=== PATIENT | male | born 1935 | race Caucasian/White ===

== ENCOUNTER 2018-02-16 09:11 | Emergency (ER) | payer MEDICARE, OTHER ==
[~2018-02-16] VITALS: Ht 172.7 cm; Wt 88.5 kg
--- NOTE | 2018-02-16 09:30 | NUR ---
mse completed, pt d/c'd home, aci/rx x1 given. pt ambulated w/o diff/took all belongings.
[2018-02-16 09:31] VITALS: BP 144/70
== END 2018-02-16 09:31 | disposition home or self-care (01) ==
LOC: ER 09:11
DX: K11.5 Sialolithiasis (principal); I10 Essential (primary) hypertension; E78.00 Pure hypercholesterolemia, unspecified; Z88.1 Allergy status to other antibiotic agents
CPT/HCPCS: A4663

== ENCOUNTER 2020-11-07 19:24 | Inpatient (IN) | payer MEDICARE, OTHER ==
[~2020-11-07] VITALS: Ht 175.3 cm; Wt 80.7 kg
--- NOTE | 2020-11-07 19:35 | NUR ---
BIB [facility] from home with generalized weakness, SOB, n/v x 2 days. To room 1B; seen and evaluated by Dr. Hidalgo. Vomited small amounts og greenish fluids. O2 sat on room air 89%. O2 3L NC administered.
[2020-11-07] MEDS ORDERED: ONDANSETRON 4 MG/2 ML VIAL IV ONE ×2 (19:45)
[2020-11-07] MEDS ORDERED: IV NORMAL SALINE 1000 ML BAG IV ONE (19:45)
[2020-11-07] MEDS ORDERED: ACETAMINOPHEN 325 MG TABLET PO ONE (19:45)
[2020-11-07 19:55] LABS: BASOPHILS # (AUTO) 0.1 K/uL (0.0-8.0); BASOPHILS % (AUTO) 0.4 % (0.0-2.0); EOSINOPHILS % (AUTO) 0.1 % (0.0-7.0); HEMATOCRIT 35.6 % (36.7-47.1); HEMOGLOBIN 11.6 g/dL (12.5-16.3); LYMPHOCYTES # (AUTO) 1.8 K/uL (20.0-40.0); LYMPHOCYTES % (AUTO) 11.1 % (20.5-51.5); MEAN CORPUSCULAR HEMOGLOBIN 28.2 uug (23.8-33.4); MEAN CORPUSCULAR HGB CONC 33 g/dL (32.5-36.3); MONOCYTES # (AUTO) 0.7 K/uL (2.0-10.0); MONOCYTES % (AUTO) 4.4 % (0.0-11.0); NEUTROPHILS # (AUTO) 13.6 K/uL (1.8-8.9); PLATELET COUNT (AUTO) 318 K/uL (152-348); RED BLOOD CELL COUNT(AUTO) 4.14 MIL/uL (4.06-5.63); WHITE BLOOD COUNT (AUTO) 16.2 K/uL (3.6-10.2)
[2020-11-07 20:00] LABS: CREATININE 0.9 mg/dL (0.6-1.3); POTASSIUM 4.1 mmol/L (3.5-5.1)
[2020-11-07 20:06] LABS: BILIRUBIN,DIRECT 0.2 mg/dL (0.0-0.2); BILIRUBIN,TOTAL 0.6 mg/dL (0.2-1.0); TOTAL PROTEIN, SERUM 6.9 g/dL (6.4-8.2)
[2020-11-07] MEDS ORDERED: ONDANSETRON 4 MG/2 ML VIAL ONE (20:06)
[2020-11-07] MEDS ORDERED: ACETAMINOPHEN ES 500 MG TABLET ONE (20:06)
--- NOTE | 2020-11-07 20:08 | NUR ---
Medicated with Tylenol after dose of Zofran. Patient denies nausea. No further vomiting. Covid 19 antigen swab sent to lab.
--- NOTE | 2020-11-07 20:15 | NUR ---
Nara patient's [id number] called . Stated that patient lives with her; updated of patient's condition. Awaiting for lab results.
[2020-11-07] MEDS ORDERED: AZITHROMYCIN 500 MG VIAL IV ONE (20:44)
[2020-11-07] MEDS ORDERED: CEFTRIAXONE 1 G VIAL ONE (20:44)
--- NOTE | 2020-11-07 20:44 | NUR ---
SHAUNNA FROM LAB CALLED TO INFORM RAPID COVID RESULT IS NEGATIVE
[2020-11-07] MEDS ORDERED: AZITHROMYCIN IV 500 MG in IV DEXTROSE 5% 250 ML IV ONE (20:45)
[2020-11-07] MEDS ORDERED: CEFTRIAXONE 1 G in IV DEXTROSE 5% 50 ML IV ONE (20:45)
[2020-11-07] MEDS ORDERED: CARV12.52 PO (20:49)
[2020-11-07] MEDS ORDERED: SIMV-46 PO ×2 (20:49)
[2020-11-07] MEDS ORDERED: METF-866 PO (20:49)
[2020-11-07] MEDS ORDERED: LISI10TA29 PO (20:49)
[2020-11-07] MEDS ORDERED: TRAZ-182 PO (20:49)
[2020-11-07] MEDS ORDERED: ASPI81TA31 PO (20:49)
[2020-11-07] MEDS ORDERED: TAMS-3 PO (20:49)
[2020-11-07] MEDS ORDERED: MAGN400C PO (20:49)
--- NOTE | 2020-11-07 21:00 | NUR ---
Patient to be admitted as per Dr. Hidalgo. Spoke to Stephen SALES AND BUSINESS DEVELOPMENT MANAGER. Patient AAO. NAD noted. Voided per urinal; urine specimen sent to lab.
[2020-11-07 21:18] LABS: *BLOOD, URINE TRACE (NEGATIVE); *CLARITY,URINE CLEAR (CLEAR); *COLOR,URINE YELLOW (YELLOW); LEUKOCYTE ESTERASE ,URINE TRACE (NEGATIVE)
[2020-11-07 21:19] LABS: *BILIRUBIN,URIN NEGATIVE (NEGATIVE); *KETONES,URINE 1+ (NEGATIVE); *UROBILINOGEN,URINE 0.2 E.U./dl (NORMAL); NITRITE, URINE NEGATIVE (NEGATIVE); PH,URINE 5.5 (5.0-8.0); UGLUCOSE NEGATIVE (NEGATIVE)
--- NOTE | 2020-11-07 21:36 | NUR ---
Report given to Chencho AVILA.
--- NOTE | 2020-11-07 21:39 | NUR ---
Patient's [id number] Nara called and informed of plan of care.
--- NOTE | 2020-11-07 21:42 | NUR ---
Pt. admitted to 309 , under care of Stephen Lim CHANNEL LIP STIFFENER INSOLES Belongs List completed
--- NOTE | 2020-11-07 21:50 | NUR ---
Admitted patient on tele floor under the care of Lebron CRAPS DEALER. Patient alert oriented, no sob no chest pain, on oxygen 3LPM. Patient has no cough, lung clear, afebrile at this time. Patient was kept comfortable, call light within reach.
[2020-11-07] MEDS ORDERED: HYDROCODONE/APAP 5-325MG TABLET PO PRN (22:15)
[2020-11-07] MEDS ORDERED: ALBUTEROL SULFATE 1.25 MG/3 ML NEBU NEB PRN (22:15)
[2020-11-07] MEDS ORDERED: Z GUARD REMEDY PASTE 57 GM TUBE TOP PRN (22:15)
[2020-11-07] MEDS ORDERED: ACETAMINOPHEN 325 MG TABLET PO PRN (22:15)
[2020-11-07] MEDS ORDERED: MAGNESIUM HYDROXIDE 30 ML LIQUID UDC PO PRN (22:15)
[2020-11-07] MEDS ORDERED: IPRATROPIUM BROMIDE 0.5 MG/2.5 ML NEBU NEB PRN (22:15)
[2020-11-07] MEDS ORDERED: IV 1/2NS 1000 ML 1,000 ML IV ONE (22:15)
[2020-11-07] MEDS ORDERED: INSULIN REGULAR, HUMAN 300 UNIT/3 ML VIAL SQ PRN (22:15)
[2020-11-07] MEDS ORDERED: ONDANSETRON 4 MG/2 ML VIAL IV PRN (22:15)
[2020-11-07] MEDS ORDERED: MORPHINE SULFATE 2 MG/1 ML DISP.SYRIN IV PRN (22:15)
[2020-11-07] MEDS ORDERED: ZOLPIDEM 5 MG TABLET PO PRN (22:15)
[2020-11-07] MEDS ORDERED: DEXTROSE 50% 50 ML DISP.SYRIN IV PRN (22:15)
[2020-11-07 22:50] VITALS: BP 108/47
[2020-11-08] MEDS: ENOXAPARIN SODIUM 40 MG/0.4 ML DISP.SYRIN SQ SCH ×2 (00:18→20:11)
[2020-11-08 00:40] VITALS: BP 91/36
[2020-11-08 04:00] VITALS: BP 108/39
[2020-11-08] MEDS: BLOOD SUGAR DIAGNOSTIC 1 EACH STRIP VI SCH ×3 (05:39→17:02)
[2020-11-08 06:24] LABS: BASOPHILS # (AUTO) 0.1 K/uL (0.0-8.0); BASOPHILS % (AUTO) 0.4 % (0.0-2.0); HEMATOCRIT 33.3 % (36.7-47.1); HEMOGLOBIN 10.6 g/dL (12.5-16.3); LYMPHOCYTES # (AUTO) 2.4 K/uL (20.0-40.0); LYMPHOCYTES % (AUTO) 16.5 % (20.5-51.5); MEAN CORPUSCULAR HEMOGLOBIN 27.8 uug (23.8-33.4); MEAN CORPUSCULAR HGB CONC 32 g/dL (32.5-36.3); MEAN CORPUSCULAR VOLUME 87.4 fL (73.0-96.2); MONOCYTES # (AUTO) 0.7 K/uL (2.0-10.0); MONOCYTES % (AUTO) 4.6 % (0.0-11.0); NEUTROPHILS # (AUTO) 11.3 K/uL (1.8-8.9); NEUTROPHILS % (AUTO) 78.5 % (38.5-71.5); PLATELET COUNT (AUTO) 271 K/uL (152-348); RED BLOOD CELL COUNT(AUTO) 3.81 MIL/uL (4.06-5.63); WHITE BLOOD COUNT (AUTO) 14.4 K/uL (3.6-10.2)
[2020-11-08 06:57] LABS: BILIRUBIN,TOTAL 0.3 mg/dL (0.2-1.0); MAGNESIUM 1.6 mg/dL (1.8-2.4); PHOSPHOROUS 4.2 mg/dL (2.5-4.9)
[2020-11-08 07:10] LABS: THYROID STIMULATING HORMONE 0.446 mIU/mL (0.358-3.740)
[2020-11-08] MEDS ORDERED: CARVEDILOL 12.5 MG TABLET PO SCH (08:00)
[2020-11-08] MEDS ORDERED: METFORMIN HCL 500 MG TABLET PO SCH (08:00)
[2020-11-08 08:10] VITALS: BP 112/38
[2020-11-08] MEDS: LISINOPRIL 10 MG TABLET PO SCH (08:31)
[2020-11-08] MEDS: ASPIRIN 81 MG TAB.CHEW PO SCH (08:32)
[2020-11-08] MEDS ORDERED: TAMSULOSIN HCL 0.4 MG CAP.SR.24H PO SCH (09:00)
[2020-11-08 11:41] VITALS: BP 112/45
[2020-11-08] MEDS ORDERED: MAGNESIUM OXIDE 400 MG TABLET PO ONE (11:45)
[2020-11-08] MEDS ORDERED: FINA5TAB11 PO (12:50)
[2020-11-08] MEDS ORDERED: ERGO500040 PO (12:50)
[2020-11-08] MEDS ORDERED: BUDE10.2 INH (12:50)
[2020-11-08] MEDS ORDERED: MELO-107 PO (12:50)
[2020-11-08] MEDS ORDERED: METF-440 PO (12:50)
[2020-11-08] MEDS ORDERED: PANT40TA49 PO (12:50)
[2020-11-08] MEDS ORDERED: DOCU250C14 PO (12:50)
[2020-11-08] MEDS ORDERED: IPRA42SP NS (12:50)
[2020-11-08 15:33] VITALS: BP 102/45
[2020-11-08] MEDS ORDERED: SWABABLE VALVE TRANSFER SET EA MC ONE (17:00)
[2020-11-08] MEDS ORDERED: IV NORMAL SALINE 250 ML IV ONE (17:01)
[2020-11-08] MEDS ORDERED: IOHEXOL 300MG/ML 100 ML INFUS..BTL ONE (17:01)
[2020-11-08] MEDS: CARVEDILOL 3.125 MG TABLET PO SCH (18:31)
--- NOTE | 2020-11-08 19:15 | NUR ---
Patient report received from day shift. Pateint alert and oriented x 4. Skin in tact. No reports of shortness of breath. Currently on 3L of oxygen via NC. Patient is on Tele, sinus rhythm. No chest pain reported. Continent, uses bedside commode. IV line on the R wrist 18g. No reports of pain. Bed in low and locked position. Safety and fall precautions in place. Call light with in reach.
[2020-11-08] MEDS: TAMSULOSIN HCL 0.4 MG CAP.SR.24H PO SCH (20:05)
[2020-11-08] MEDS: TRAZODONE 50 MG TABLET PO SCH (20:05)
[2020-11-08] MEDS: CEFTRIAXONE 1 G in IV DEXTROSE 5% 50 ML IV SCH (20:06)
[2020-11-08 20:15] VITALS: BP 140/43
[2020-11-08] MEDS ORDERED: SIMVASTATIN 20 MG TABLET PO SCH (21:00)
[2020-11-08] MEDS: AZITHROMYCIN IV 500 MG in IV DEXTROSE 5% 250 ML IV SCH (21:19)
[2020-11-09 00:34] VITALS: BP 106/48
[2020-11-09 04:43] VITALS: BP 124/56
[2020-11-09 05:32] LABS: BASOPHILS # (AUTO) 0.1 K/uL (0.0-8.0); BASOPHILS % (AUTO) 0.7 % (0.0-2.0); EOSINOPHILS # (AUTO) 0.2 K/uL (0.0-0.7); EOSINOPHILS % (AUTO) 2.2 % (0.0-7.0); HEMATOCRIT 34.6 % (36.7-47.1); HEMOGLOBIN 10.8 g/dL (12.5-16.3); LYMPHOCYTES # (AUTO) 2.6 K/uL (20.0-40.0); LYMPHOCYTES % (AUTO) 32.8 % (20.5-51.5); MEAN CORPUSCULAR HEMOGLOBIN 27.1 uug (23.8-33.4); MEAN CORPUSCULAR HGB CONC 31 g/dL (32.5-36.3); MEAN CORPUSCULAR VOLUME 87.1 fL (73.0-96.2); MONOCYTES # (AUTO) 0.9 K/uL (2.0-10.0); MONOCYTES % (AUTO) 12.1 % (0.0-11.0); NEUTROPHILS # (AUTO) 4.1 K/uL (1.8-8.9); NEUTROPHILS % (AUTO) 52.2 % (38.5-71.5); PLATELET COUNT (AUTO) 265 K/uL (152-348); RED BLOOD CELL COUNT(AUTO) 3.98 MIL/uL (4.06-5.63); WHITE BLOOD COUNT (AUTO) 7.8 K/uL (3.6-10.2)
[2020-11-09 05:43] LABS: BILIRUBIN,TOTAL 0.2 mg/dL (0.2-1.0); CREATININE 0.8 mg/dL (0.6-1.3); MAGNESIUM 1.4 mg/dL (1.8-2.4); PHOSPHOROUS 3.2 mg/dL (2.5-4.9); POTASSIUM 4.1 mmol/L (3.5-5.1)
--- NOTE | 2020-11-09 06:52 | NUR ---
Patient slept well through the night. Awake and alert and oriented x 4. Patient is still on 3L of oxygen saturating at 97%. No reports of shortness of breath. On TELE, lexis throughout the night, currently sinus rhythm with some PVCs. Able to use urinal and commode with assistance. Continent for bowel and urine. Medications given as ordered. Safety and fall precautions in place.
[2020-11-09] MEDS: CARVEDILOL 3.125 MG TABLET PO SCH ×2 (08:04→17:08)
[2020-11-09] MEDS: ASPIRIN 81 MG TAB.CHEW PO SCH (08:04)
[2020-11-09] MEDS: LISINOPRIL 10 MG TABLET PO SCH (08:05)
--- NOTE | 2020-11-09 08:30 | NUR ---
RECEIVED PATIENT IN BED AWAKE ALERT AND ORIENTED AND VERBALLY RESPONSIVE DENIES PAIN OR DISCOMFORTS AT THIS TIME.TELE IS SR AT THIS TIME.CALL LIGHTS AND HIS PERSONAL BELONGINGS ARE WITHIN EASY REACH MADE COMFORTABLE.
[2020-11-09 08:34] VITALS: BP 109/55
--- NOTE | 2020-11-09 10:00 | NUR ---
IV SITE CHANGED TO LEFT FOREARM WITH GAUGE 20 WITH ONE ATTEMPT AND TOLERATED WELL.
[2020-11-09] MEDS ORDERED: Medication Not On Formulary EA (Meloxicam 15 MG) PO SCH (10:45)
--- NOTE | 2020-11-09 11:00 | NUR ---
PHYSICAL THERAPY SEEN PATIENT AND PATIENT AMBULATED WITH FRONT WHEEL WALKER WITH MIN ASSIST WITH FAIR ENDURANCE.
[2020-11-09] MEDS: MELOXICAM 7.5 MG TABLET PO SCH (11:02)
[2020-11-09] MEDS: MAGNESIUM SULFATE/D5W 100 ML IV SCH ×2 (11:02→12:03)
--- NOTE | 2020-11-09 12:03 | NUR ---
MAG LEVEL IS 1.4 WITH NEW ORDERS FOR MAGNESSIUM REPLACEMENT AND NOTED.
[2020-11-09 16:06] VITALS: BP 139/52
[2020-11-09 20:15] VITALS: BP 119/50
[2020-11-09] MEDS: CEFTRIAXONE 1 G in IV DEXTROSE 5% 50 ML IV SCH (20:24)
[2020-11-09] MEDS: TRAZODONE 50 MG TABLET PO SCH (20:24)
[2020-11-09] MEDS: TAMSULOSIN HCL 0.4 MG CAP.SR.24H PO SCH (20:24)
[2020-11-09] MEDS: ENOXAPARIN SODIUM 40 MG/0.4 ML DISP.SYRIN SQ SCH (20:25)
[2020-11-09] MEDS: AZITHROMYCIN IV 500 MG in IV DEXTROSE 5% 250 ML IV SCH (21:12)
[2020-11-10 00:24] VITALS: BP 113/48
[2020-11-10 04:41] VITALS: BP 112/55
--- NOTE | 2020-11-10 05:27 | NUR ---
Pt slept intermittently throughout the night. Denies pain or SOB. Titrated to 2L NC. Given Milk of Magnesia for c/o gas and constipation, patient tolerated medication well. Able to get up with assist to use bedside commode. Currently SR on tele. Had episodes of PVCs with no chest pain or discomfort noted. Safety and comfort provided throughout shift, call light within reach. No other issues or concerns at this time, will endorse to day shift.
[2020-11-10 06:36] LABS: BASOPHILS # (AUTO) 0.1 K/uL (0.0-8.0); BASOPHILS % (AUTO) 0.6 % (0.0-2.0); EOSINOPHILS # (AUTO) 0.1 K/uL (0.0-0.7); EOSINOPHILS % (AUTO) 1.6 % (0.0-7.0); HEMATOCRIT 35.8 % (36.7-47.1); HEMOGLOBIN 11.4 g/dL (12.5-16.3); LYMPHOCYTES # (AUTO) 2.8 K/uL (20.0-40.0); MEAN CORPUSCULAR HEMOGLOBIN 27.7 uug (23.8-33.4); MEAN CORPUSCULAR HGB CONC 32 g/dL (32.5-36.3); MEAN CORPUSCULAR VOLUME 87.2 fL (73.0-96.2); MONOCYTES % (AUTO) 10.9 % (0.0-11.0); NEUTROPHILS # (AUTO) 5.1 K/uL (1.8-8.9); NEUTROPHILS % (AUTO) 55.9 % (38.5-71.5); PLATELET COUNT (AUTO) 302 K/uL (152-348); WHITE BLOOD COUNT (AUTO) 9.1 K/uL (3.6-10.2)
[2020-11-10 06:56] LABS: CREATININE 0.8 mg/dL (0.6-1.3); MAGNESIUM 1.8 mg/dL (1.8-2.4); PHOSPHOROUS 3.1 mg/dL (2.5-4.9); POTASSIUM 4.1 mmol/L (3.5-5.1)
[2020-11-10] MEDS ORDERED: PANTOPRAZOLE SODIUM 40 MG TABLET.DR PO SCH (07:00)
--- NOTE | 2020-11-10 07:30 | NUR ---
IN BED ASLEEP WITH EYES CLOSED WITH O2 ORDERED WITH NO S/S OFSHORTNESS OF BREATH AT THIS TIME.TELE IS SR ALERT AND ORIENTED WHEN CALLED OR TOUCHED DENIES PAIN OR DISCOMFORTS AT THIS TIME CALL LIGHTS AND PERSONAL BELONGINGS ARE WITHIN EASY REACH NOT IN DISTRESS WILL CONTINUE TO OBSERVE.
--- NOTE | 2020-11-10 08:56 | NUR ---
PATIENT SEEN BY THE PHYSICAL THERAPY FOR AMBULATION WALKED 50 FEET WITH MIN ASSIST AND THE O2 ON ROOM AIR AT THIS TIME IS 95 PATIENT IS SITTING ON THE CHAIR IN HIS ROOM ON ROOM AIR EATING HIS BREAKFAST WILL CHECK HIS O2 SAT LATER.
[2020-11-10] MEDS: ASPIRIN 81 MG TAB.CHEW PO SCH (08:58)
[2020-11-10] MEDS: MELOXICAM 7.5 MG TABLET PO SCH (08:58)
[2020-11-10] MEDS: LISINOPRIL 10 MG TABLET PO SCH (08:59)
[2020-11-10] MEDS: CARVEDILOL 3.125 MG TABLET PO SCH (08:59)
[2020-11-10] MEDS ORDERED: FINASTERIDE 5 MG TABLET PO SCH (09:00)
[2020-11-10 11:16] VITALS: BP 113/52
[2020-11-10] MEDS ORDERED: TAMS-3 PO (12:14)
[2020-11-10] MEDS ORDERED: CARV3.122 PO (12:14)
[2020-11-10] MEDS ORDERED: CEPH500C2 PO (12:14)
--- NOTE | 2020-11-10 12:30 | NUR ---
DR NAZARIO HERE TO SEE PATIENT WITH ORDER TO DISCHARGE PATIENT HOME TODAY AND NOTED PATIENT AWARE AND STATED THAT HIS DAUGHTER MCIHAEL WILL BE HERE TO PICK HIM UP ABOUT 1330.
--- NOTE | 2020-11-10 13:00 | NUR ---
NOTED THAT PATIENTS NEW DISCHARGE MEDICATIONS WAS SENT ELECTRONICALLY TO [facility] BY DR JONES BUT PATIENT STATED THAT HIS PHARMACY IS [facility] BUT IS AGREEABLE TO PICK HIS MEDICATIONS FROM [facility] SO INFO ON [facility] PROVIDED TO THE PATIENT PREPPING PATIENT FOR DISCHARGE AT THIS TIME.
--- NOTE | 2020-11-10 13:35 | NUR ---
PATIENT DISCHARGED WHEELED DOWN BY W/CHAIR WITH DISCHARGE INSTRUCTIONS AND ALL HIS PERSONAL BELONGINGS PER THE CASE MANAGEMENT NOTES PATIENT HAS AN OPEN CASE WITH THE [facility] AND THEY WILL CONTINUE WITH THEM PATIENT DISCHARGED IN SATISFACTORY CONDITION WILL START KEFLEX SOON HE GETS THEM FROM THE PHARMACY.
[2020-11-10] MEDS ORDERED: METFORMIN HCL 500 MG TABLET PO SCH (18:00)
[2020-11-10] MEDS ORDERED: AZITHROMYCIN 250 MG TABLET PO SCH (21:00)
== END 2020-11-10 13:45 | disposition home health service (06) | DRG 871 ==
LOC: ER 19:24 → TELE3 21:38
PROVIDERS: ADMIT Internal Medicine; ATTEND Internal Medicine
DX: A41.9 Sepsis, unspecified organism (principal); J96.01 Acute respiratory failure with hypoxia; J12.9 Viral pneumonia, unspecified; E44.0 Moderate protein-calorie malnutrition; D68.59 Other primary thrombophilia; M48.56XA Collapsed vertebra, not elsewhere classified, lumbar region, initial encounter for fracture; J90 Pleural effusion, not elsewhere classified; Z20.822 Contact with and (suspected) exposure to COVID-19; E11.9 Type 2 diabetes mellitus without complications; E83.42 Hypomagnesemia; I10 Essential (primary) hypertension; N28.1 Cyst of kidney, acquired; Z87.440 Personal history of urinary (tract) infections; R94.31 Abnormal electrocardiogram [ECG] [EKG]; E88.09 Other disorders of plasma-protein metabolism, not elsewhere classified; M48.16 Ankylosing hyperostosis [Forestier], lumbar region; N40.0 Benign prostatic hyperplasia without lower urinary tract symptoms; K59.09 Other constipation; Z79.84 Long term (current) use of oral hypoglycemic drugs
CPT/HCPCS: 36415; 70030-TC; 71045; 71260; 83605; 83690; 83735; 84100; 84443; 85025; 85730; 93005; A4663; A9150; G0378; J0456; J0696; J1650; J1815; J2405; J3475; J3490; J7030; J7040; J7050; J7060; Q9967; U0003

== ENCOUNTER 2020-11-12 11:44 | Emergency (ER) | payer MEDICARE, OTHER ==
[~2020-11-12] VITALS: Ht 160 cm; Wt 74.8 kg
[~2020-11-12 11:44] MED LIST: ASPI81TA31 PO; BUDE10.2 INH; CARV3.122 PO; CEPH500C2 PO; DOCU250C14 PO; ERGO500040 PO; FINA5TAB11 PO; IPRA42SP NS; LISI10TA29 PO; MELO-107 PO; METF-440 PO; PANT40TA49 PO; TAMS-3 PO; TRAZ-182 PO
--- NOTE | 2020-11-12 11:47 | NUR ---
patient states he was admitted a few days ago for the same complaint. patient is unable to urinate. Dr. Eid at bedside will place nova.
[2020-11-12] MEDS ORDERED: LIDOCAINE 2% (UROJET) 10 ML JELLY MM ONE ×2 (11:56→12:00)
[2020-11-12] MEDS ORDERED: POLY17PO4 PO (12:20)
[2020-11-12] MEDS ORDERED: SENN-261 PO (12:20)
--- NOTE | 2020-11-12 12:21 | NUR ---
sent urine to lab. also informed Dr. Eid that patient states he is unable to have bowel movement for last 4 days.
--- NOTE | 2020-11-12 12:28 | NUR ---
patient continues to drain some urine. will attach leg bag for dishcarge home. prescriptions given. discharge instruction, verbalized understanding and signed.
[2020-11-12 12:29] LABS: *BILIRUBIN,URIN NEGATIVE (NEGATIVE); *BLOOD, URINE NEGATIVE (NEGATIVE); *CLARITY,URINE CLEAR (CLEAR); *COLOR,URINE YELLOW (YELLOW); *KETONES,URINE NEGATIVE (NEGATIVE); *UROBILINOGEN,URINE 0.2 E.U./dl (NORMAL); LEUKOCYTE ESTERASE ,URINE NEGATIVE (NEGATIVE); NITRITE, URINE NEGATIVE (NEGATIVE); UGLUCOSE NEGATIVE (NEGATIVE)
[2020-11-12 12:54] VITALS: BP 112/62
== END 2020-11-12 12:55 | disposition home or self-care (01) ==
LOC: ER 11:44
DX: N40.1 Benign prostatic hyperplasia with lower urinary tract symptoms (principal); R33.8 Other retention of urine; K59.00 Constipation, unspecified; Z79.899 Other long term (current) drug therapy; Z79.82 Long term (current) use of aspirin
CPT/HCPCS: 51702; 87086; A4663

== ENCOUNTER 2020-11-24 13:11 | Emergency (ER) | payer MEDICARE, OTHER ==
[~2020-11-24] VITALS: Ht 160 cm; Wt 74.8 kg
[~2020-11-24 13:11] MED LIST changes: +POLY17PO4 PO; +SENN-261 PO
--- NOTE | 2020-11-24 13:44 | NUR ---
Dr Melendez at the bedside for MSE.
--- NOTE | 2020-11-24 13:50 | NUR ---
F/C removed per Dr Al govea, Pt tolorated well.
--- NOTE | 2020-11-24 13:56 | NUR ---
Patient discharged to home in stable condition. Written and verbal after care instructions given. Patient verbalizes understanding of instructions. Stressed follow up or return to ER for worsening s/s.
[2020-11-24 13:57] VITALS: BP 146/88
== END 2020-11-24 13:58 | disposition home or self-care (01) ==
LOC: ER 13:11
DX: Z43.6 Encounter for attention to other artificial openings of urinary tract (principal); N40.1 Benign prostatic hyperplasia with lower urinary tract symptoms; R33.8 Other retention of urine; Z79.899 Other long term (current) drug therapy; Z87.01 Personal history of pneumonia (recurrent)
CPT/HCPCS: A4663

== ENCOUNTER 2020-12-20 19:35 | Inpatient (IN) | payer MEDICARE, OTHER ==
[~2020-12-20] VITALS: Ht 172.7 cm; Wt 77.1 kg
--- NOTE | 2020-12-20 19:40 | NUR ---
Pt BIB [facility] from home with c/o leg weakness/pain PL:03/29 stated that he is having difficulty walking x13 days. A/ x4, no SOB or labored breathing. Afebrile. Denies CP/pressure. No GI/ distress. Bed in lowest position, educated about safety precautions, verbalized understanding.
--- NOTE | 2020-12-20 19:45 | NUR ---
Dr. Khoury at bedside, MSE in progress.
[2020-12-20] MEDS ORDERED: HYDROMORPHONE 1 MG/1 ML DISP.SYRIN IM ONE (20:30)
[2020-12-20] MEDS ORDERED: ONDANSETRON HCL 4 MG TABLET PO ONE (20:30)
[2020-12-20] MEDS ORDERED: HYDROMORPHONE 1 MG/1 ML DISP.SYRIN ONE (20:40)
[2020-12-20] MEDS ORDERED: ONDANSETRON HCL 4 MG TABLET ONE (20:40)
--- NOTE | 2020-12-20 20:41 | NUR ---
Pt taken down for CT.
[2020-12-20 20:49] LABS: HEMATOCRIT 32.7 % (36.7-47.1); MEAN CORPUSCULAR HEMOGLOBIN 27.2 uug (23.8-33.4); MEAN CORPUSCULAR VOLUME 85.2 fL (73.0-96.2); PLATELET COUNT (AUTO) 506 K/uL (152-348)
[2020-12-20 20:56] LABS: CREATININE 0.8 mg/dL (0.6-1.3); POTASSIUM 4.2 mmol/L (3.5-5.1)
--- NOTE | 2020-12-20 21:00 | NUR ---
Pt returned from CT.
[2020-12-20 21:02] LABS: BILIRUBIN,DIRECT 0.2 mg/dL (0.0-0.2); BILIRUBIN,TOTAL 0.5 mg/dL (0.2-1.0); TOTAL PROTEIN, SERUM 6.6 g/dL (6.4-8.2)
[2020-12-20 21:05] LABS: *BILIRUBIN,URIN 1+ (NEGATIVE); *BLOOD, URINE NEGATIVE (NEGATIVE); *CLARITY,URINE CLEAR (CLEAR); *COLOR,URINE YELLOW (YELLOW); *KETONES,URINE NEGATIVE (NEGATIVE); *UROBILINOGEN,URINE 0.2 E.U./dl (NORMAL); LEUKOCYTE ESTERASE ,URINE NEGATIVE (NEGATIVE); NITRITE, URINE NEGATIVE (NEGATIVE); PH,URINE 5.5 (5.0-8.0); UGLUCOSE NEGATIVE (NEGATIVE)
[2020-12-20 21:23] LABS: IRON, SERUM 18 ug/dL (50-175)
[2020-12-20 21:27] LABS: CREATINE KINASE, TOTAL 140 U/L (39-308); FERRITIN 177 ng/mL (26-388)
[2020-12-20] MEDS ORDERED: SENNOSIDES 1 TABLET PO PRN (21:30)
[2020-12-20] MEDS ORDERED: MORPHINE SULFATE 2 MG/1 ML DISP.SYRIN IV PRN (21:30)
[2020-12-20] MEDS ORDERED: ONDANSETRON 4 MG/2 ML VIAL IV PRN (21:30)
--- NOTE | 2020-12-20 22:04 | NUR ---
Gave report to MS nurse Mariam AVILA.
--- NOTE | 2020-12-20 23:00 | NUR ---
In from Er per richi with cc of leg pain and inabulity to walk fixed in bed and made comfortable .placed on tlelemetry monitor,. normal sinus rhythm
--- NOTE | 2020-12-20 23:01 | NUR ---
Pt. admitted to Med Surg , under care of Dr. Feliz Dx: pain management Belongs List completed
[2020-12-20 23:46] VITALS: BP 111/66
--- NOTE | 2020-12-21 01:33 | NUR ---
noted to have patient pulled the iv cannula. iv cannula reinserted and kept on hl. with multiple pvc. vital signs will be checked and will inform Dr Feliz
--- NOTE | 2020-12-21 01:47 | NUR ---
STANFORD Wyatt paged for the patient has frequent PVC,s .vital signs checked . and recorded
--- NOTE | 2020-12-21 01:55 | NUR ---
BACK UP WORKER Ke with no further orders but place the patient on oxygen 2 liters nasal cannula/will continue to monitor,
[2020-12-21 02:00] VITALS: BP 116/53
[2020-12-21 04:22] VITALS: BP 122/61
--- NOTE | 2020-12-21 05:06 | NUR ---
STANFORD Wyatt paged as the patient is having frequent PVC,S . patient is diabetic but controlled .awaiting response
--- NOTE | 2020-12-21 05:18 | NUR ---
with orders and carried out, EKG ordered and add troponin with nthe ordered labs
[2020-12-21 06:44] LABS: HEMATOCRIT 29.6 % (36.7-47.1); MEAN CORPUSCULAR HEMOGLOBIN 27.8 uug (23.8-33.4); MEAN CORPUSCULAR VOLUME 84.5 fL (73.0-96.2); PLATELET COUNT (AUTO) 424 K/uL (152-348)
[2020-12-21] MEDS: PANTOPRAZOLE SODIUM 40 MG TABLET.DR PO SCH (06:48)
--- NOTE | 2020-12-21 06:52 | NUR ---
ekg done with asinus bradycardia with first degree block.
[2020-12-21 07:32] LABS: BILIRUBIN,TOTAL 0.4 mg/dL (0.2-1.0); CREATININE 0.7 mg/dL (0.6-1.3); PHOSPHOROUS 3.1 mg/dL (2.5-4.9); POTASSIUM 3.4 mmol/L (3.5-5.1); TOTAL PROTEIN, SERUM 5.6 g/dL (6.4-8.2)
[2020-12-21] MEDS ORDERED: CARVEDILOL 3.125 MG TABLET PO SCH (08:00)
--- NOTE | 2020-12-21 08:05 | NUR ---
Critical lab called in for mg 1.0 new order received for total of 3 bags of magnesium IV. Discussed plan of care with pt re: pain management of his lower back pain. Pt agreeable with frequent q2 hrs turning, heels floated, ice on lower back. Pt current pain level is tolerable of 1/10 pain level. Fall precaution implemented. Bed alarm on. Call light is within reach. PT is in no acute distress.
[2020-12-21] MEDS ORDERED: MAGNESIUM SULFATE/D5W 100 ML IV SCH (08:15)
[2020-12-21] MEDS: FINASTERIDE 5 MG TABLET PO SCH (08:27)
[2020-12-21] MEDS: MELOXICAM 7.5 MG TABLET PO SCH (08:27)
[2020-12-21] MEDS: METFORMIN HCL 500 MG TABLET PO SCH ×2 (08:37→16:22)
[2020-12-21] MEDS ORDERED: LISINOPRIL 10 MG TABLET PO SCH (09:00)
[2020-12-21] MEDS ORDERED: ASPIRIN 81 MG TAB.CHEW PO SCH (09:00)
[2020-12-21] MEDS ORDERED: POTASSIUM CHLORIDE 20 MEQ TAB.PRT.SR PO ONE (09:30)
[2020-12-21] MEDS ORDERED: MAGNESIUM SULFATE 2 GM in IV DEXTROSE 5% 100 ML IV ONE (10:00)
[2020-12-21] MEDS: MAGNESIUM SULFATE/D5W 100 ML IV SCH ×2 (10:07→11:49)
[2020-12-21] MEDS: DEXAMETHASONE SOD PHOSPHATE 4 MG INJ IV SCH ×2 (11:51→20:40)
[2020-12-21] MEDS: PROTEIN SUPPLEMENT (PROSTAT) 30 ML LIQUID PO SCH ×2 (11:51→16:22)
[2020-12-21 12:00] VITALS: BP 114/50
[2020-12-21] MEDS: CARISOPRODOL 350 MG TABLET PO SCH ×2 (12:13→16:22)
--- NOTE | 2020-12-21 12:13 | NUR ---
Pt alert and oriented. pain level at 5/10. New order for SOMA received. Discussed new medication soma with pt. Discussed purpose of medication and how it can manage his pain. Discuss soma's side effects. Pt agreeable with taking soma.
--- NOTE | 2020-12-21 13:00 | NUR ---
Pain level @ 1/10 soma effective of relieving pt's pain.
[2020-12-21 16:00] VITALS: BP 106/54
--- NOTE | 2020-12-21 18:19 | NUR ---
PT seen by Dr Feliz. No new order received. Pt is in no acute distress. Pain level @ 2/10 on his lower back. Scheduled SOMA given for pt. Pt agreeable on taking meds.
--- NOTE | 2020-12-21 19:57 | NUR ---
Received patient in bed alert and able to make needs known with 02 at 2LPM via NC saturating well.Denies pain at this time. Uses Urinal.Repositioned patient for comfort with 2 person assist.Compliant with medication. Call light with in reach.
[2020-12-21 20:11] VITALS: BP 109/59
[2020-12-21] MEDS: TRAZODONE 50 MG TABLET PO SCH (20:40)
[2020-12-21] MEDS: TAMSULOSIN HCL 0.4 MG CAP.SR.24H PO SCH (20:40)
[2020-12-21] MEDS: MIRALAX 17 GM POWD.PACK PO PRN (20:56)
[2020-12-21] MEDS: ACETAMINOPHEN 325 MG TABLET PO PRN (23:38)
[2020-12-22 00:03] VITALS: BP 106/45
[2020-12-22 04:06] VITALS: BP 107/49
[2020-12-22] MEDS: PANTOPRAZOLE SODIUM 40 MG TABLET.DR PO SCH (06:01)
[2020-12-22 06:35] LABS: HEMATOCRIT 32.4 % (36.7-47.1); MEAN CORPUSCULAR VOLUME 84.6 fL (73.0-96.2); PLATELET COUNT (AUTO) 416 K/uL (152-348)
[2020-12-22 07:00] LABS: CREATININE 0.8 mg/dL (0.6-1.3); MAGNESIUM 1.8 mg/dL (1.8-2.4); PHOSPHOROUS 3.1 mg/dL (2.5-4.9); POTASSIUM 4.4 mmol/L (3.5-5.1)
--- NOTE | 2020-12-22 07:30 | NUR ---
RECEIVED PATIENT IN BED ASLEEP WITH EYES CLOSED OPENS EYES WHEN TOUCHED OR NAME IS CALLED ASSISTED WITH PERSONAL NEEDS NEEDED ON O2 AT 2L/M BY NASAL CANULA WITH NO SOB AT THIS TIME TELE IS SR WITH NO ECTOPY CALL LIGHTS AND PERSONAL BELONGINGS ARE WITHIN EASY REACH MADE COMFORTABLE WILL CONTINUE TO OBSERVE AND PROVIDE COMFORT.
[2020-12-22] MEDS: ASPIRIN EC 81 MG TABLET.DR PO SCH (08:23)
[2020-12-22] MEDS: FINASTERIDE 5 MG TABLET PO SCH (08:23)
[2020-12-22] MEDS: CARISOPRODOL 350 MG TABLET PO SCH ×3 (08:23→16:31)
[2020-12-22] MEDS: DEXAMETHASONE SOD PHOSPHATE 4 MG INJ IV SCH ×2 (08:23→20:35)
[2020-12-22] MEDS: METFORMIN HCL 500 MG TABLET PO SCH ×2 (08:23→16:31)
[2020-12-22] MEDS: PROTEIN SUPPLEMENT (PROSTAT) 30 ML LIQUID PO SCH ×3 (08:24→16:32)
[2020-12-22] MEDS: LISINOPRIL 5 MG TABLET PO SCH (08:24)
[2020-12-22] MEDS: MELOXICAM 7.5 MG TABLET PO SCH (08:24)
--- NOTE | 2020-12-22 11:00 | NUR ---
PHYSICAL THERAPY HERE TO SEE AND EXAMINE PATIENT REQUIRED MAX ASSIST OF TWO THERAPIST PER THE THERAPIST THEY WILL CONTINUE WITH STRENGHTENING EXERCISES WILL CONTINUE WITH PAIN MEDICATIONS ORDERED WILL CONTINUE TO ASSIST PATIENT NEEDED.
[2020-12-22 11:56] VITALS: BP 109/67
--- NOTE | 2020-12-22 15:00 | NUR ---
DR JONES HERE AND SEEN PATIENT WITH NO NEW ORDERS AT THIS TIME.
[2020-12-22 15:57] VITALS: BP 109/54
--- NOTE | 2020-12-22 17:32 | NUR ---
RESTING IN BED EATING DINNER STATED COMFORTABLE AT THIS TIME WILL CONTINUE TO OBSERVE AND PROVIDE COMFORT.
[2020-12-22 20:06] VITALS: BP 101/44
[2020-12-22] MEDS: TAMSULOSIN HCL 0.4 MG CAP.SR.24H PO SCH (20:35)
[2020-12-22] MEDS: TRAZODONE 50 MG TABLET PO SCH (20:35)
--- NOTE | 2020-12-22 21:06 | NUR ---
Pt is supposed to have CTA but pt ate; and prefers to do it in AM
[2020-12-22] MEDS: ACETAMINOPHEN 325 MG TABLET PO PRN (21:57)
[2020-12-22] MEDS: MAGNESIUM OXIDE 400 MG TABLET PO SCH (21:58)
[2020-12-22] MEDS ORDERED: SWABABLE VALVE TRANSFER SET EA MC ONE (22:29)
[2020-12-22] MEDS ORDERED: IV NORMAL SALINE 250 ML IV ONE (22:29)
[2020-12-22] MEDS ORDERED: IOHEXOL 350 100 ML INFUS..BTL ONE (22:29)
[2020-12-23 00:03] VITALS: BP 113/51
[2020-12-23] MEDS ORDERED: ENOXAPARIN SODIUM 80 MG/0.8 ML DISP.SYRIN SQ ONE (01:00)
--- NOTE | 2020-12-23 03:50 | NUR ---
pt had his CTA chest last night; results reported to Dr Downey and ordered lovenox per pharmacy. safety maintained; continue to monitor; continue plan of care
[2020-12-23 04:06] VITALS: BP 109/64
[2020-12-23] MEDS: PANTOPRAZOLE SODIUM 40 MG TABLET.DR PO SCH (06:14)
--- NOTE | 2020-12-23 07:15 | NUR ---
PATIENT RECEIVED IN BED AWAKE ALERT AND ORIENTED ON O2 AT 3L/M BY NASAL CANULA WITH NO SOB AT THIS TIME DENIES PAIN OR DISCOMFORTS AT THIS TIME CALL LIGHTS AND PERSONAL BELONGINGS ARE WITHIN EASY REACH MADE COMFORTABLE WILL CONTINUE TO OBSERVE.
[2020-12-23] MEDS: CARISOPRODOL 350 MG TABLET PO SCH ×3 (08:28→16:38)
[2020-12-23] MEDS: DEXAMETHASONE SOD PHOSPHATE 4 MG INJ IV SCH ×2 (08:29→20:45)
[2020-12-23] MEDS: MELOXICAM 7.5 MG TABLET PO SCH (08:29)
[2020-12-23] MEDS: ASPIRIN EC 81 MG TABLET.DR PO SCH (08:29)
[2020-12-23] MEDS: FINASTERIDE 5 MG TABLET PO SCH (08:29)
[2020-12-23] MEDS: LISINOPRIL 5 MG TABLET PO SCH (08:30)
[2020-12-23] MEDS: PROTEIN SUPPLEMENT (PROSTAT) 30 ML LIQUID PO SCH ×3 (08:34→16:39)
[2020-12-23] MEDS ORDERED: DEXTROSE 50% 50 ML DISP.SYRIN IV PRN (09:45)
[2020-12-23 11:39] VITALS: BP 116/63
[2020-12-23] MEDS: BLOOD SUGAR DIAGNOSTIC 1 EACH STRIP VI SCH ×3 (11:56→20:45)
[2020-12-23] MEDS: INSULIN REGULAR, HUMAN 300 UNIT/3 ML VIAL SQ PRN ×3 (12:00→20:55)
--- NOTE | 2020-12-23 13:20 | NUR ---
BLOOD SUGAR ORDERED AND ITS 184 COVERED WITH REGULAR INSULIN ORDERED METFORMIN REMAINS ON HOLD FOR 24 HOURS BECAUSE PATIENT RECEIVED IV CONTRAST NO S/S OF HYPO/HYPERGLYCEMIC REACTIONS AT THIS TIME.
--- NOTE | 2020-12-23 14:02 | NUR ---
CALLED [facility] AND SPOKE WITH SOFYA JOSE PATIENT NEEDS A [facility] FOR PHYSICAL THERAPY AND SHE STATED TO SEND THE ORDERS AND ALL THE PATIENTS INFO SO IT WAS FAXED TO [facility] [phone]
[2020-12-23 15:25] VITALS: BP 91/46
--- NOTE | 2020-12-23 16:17 | NUR ---
PATIENT SEEN AND EXAMINED BY DR OCTAVIA CERON WITH NEW ORDERS AND NOTED.
[2020-12-23] MEDS: ENOXAPARIN SODIUM 80 MG/0.8 ML DISP.SYRIN SQ SCH (17:02)
--- NOTE | 2020-12-23 18:00 | NUR ---
REMAIN ON LOVENOX ORDERED WITH NO ADVERSE OR ALLERGIC REACTIONS AT THIS TIME NO BLEEDING AT THIS TIME.
[2020-12-23 20:13] VITALS: BP 118/68
[2020-12-23] MEDS: TAMSULOSIN HCL 0.4 MG CAP.SR.24H PO SCH (20:44)
[2020-12-23] MEDS: TRAZODONE 50 MG TABLET PO SCH (20:44)
[2020-12-23] MEDS: MAGNESIUM OXIDE 400 MG TABLET PO SCH (20:45)
[2020-12-23] MEDS: MIRALAX 17 GM POWD.PACK PO PRN (20:46)
[2020-12-24] MEDS: ACETAMINOPHEN 325 MG TABLET PO PRN (00:24)
[2020-12-24 00:30] VITALS: BP 131/54
[2020-12-24 04:45] VITALS: BP 134/53
--- NOTE | 2020-12-24 04:58 | NUR ---
No significant changes during the night. Pt remains AxO x4, able to make needs known. Tolerating 2L NC, no desats noted. SB on monitor with HR ranging between 50-60s, in no acute distress. Minimum assistance with urinal. Miralax given for constipation, still no BM noted. PT ordered, Awaiting lorsette brace. All needs attended. Call light within reach. Continue plan of care.
[2020-12-24] MEDS: ENOXAPARIN SODIUM 80 MG/0.8 ML DISP.SYRIN SQ SCH (05:28)
[2020-12-24] MEDS: PANTOPRAZOLE SODIUM 40 MG TABLET.DR PO SCH (05:28)
[2020-12-24] MEDS: BLOOD SUGAR DIAGNOSTIC 1 EACH STRIP VI SCH ×2 (06:48→11:50)
[2020-12-24 06:52] LABS: HEMATOCRIT 34.3 % (36.7-47.1); MEAN CORPUSCULAR HEMOGLOBIN 26.9 uug (23.8-33.4); MEAN CORPUSCULAR VOLUME 84.8 fL (73.0-96.2); PLATELET COUNT (AUTO) 462 K/uL (152-348)
[2020-12-24 07:07] LABS: CREATININE 0.7 mg/dL (0.6-1.3); MAGNESIUM 1.6 mg/dL (1.8-2.4); PHOSPHOROUS 2.2 mg/dL (2.5-4.9); POTASSIUM 4.9 mmol/L (3.5-5.1)
--- NOTE | 2020-12-24 07:20 | NUR ---
PATIENT IS IN BED WITH EYES CLOSED OPENS EYES WHEN NAME IS CALLED HE IS ALERT WHEN AWAKE DENIES DISCOMFORTS AT THIS TIME STATED ONLY HURTS WHEN HE MOVES ON ROOM AIR WITH NO S/S OF SHORTNESS OF BREATH AT THIS TIME CALL LIGHTS AND PERSONAL BELONGINGS ARE WITHIN EASY REACH WILL CONTINUE TO OBSERVE AND PROVIDE COMFORT
[2020-12-24] MEDS: INSULIN REGULAR, HUMAN 300 UNIT/3 ML VIAL SQ PRN ×2 (07:56→12:01)
[2020-12-24 08:00] VITALS: BP 120/55
[2020-12-24] MEDS: FINASTERIDE 5 MG TABLET PO SCH (08:34)
[2020-12-24] MEDS: MELOXICAM 7.5 MG TABLET PO SCH (08:34)
[2020-12-24] MEDS: CARISOPRODOL 350 MG TABLET PO SCH ×2 (08:35→12:04)
[2020-12-24] MEDS: DEXAMETHASONE SOD PHOSPHATE 4 MG INJ IV SCH (08:35)
[2020-12-24] MEDS: ASPIRIN EC 81 MG TABLET.DR PO SCH (08:35)
[2020-12-24] MEDS: LISINOPRIL 5 MG TABLET PO SCH (08:35)
[2020-12-24] MEDS: PROTEIN SUPPLEMENT (PROSTAT) 30 ML LIQUID PO SCH ×2 (08:36→11:51)
[2020-12-24] MEDS: MAGNESIUM SULFATE/D5W 100 ML IV SCH ×2 (09:18→10:20)
[2020-12-24 11:08] VITALS: BP 103/44
[2020-12-24] MEDS ORDERED: RIVA10TA PO (11:15)
--- NOTE | 2020-12-24 12:00 | NUR ---
PATIENT WILL BE DISCHARGED FROM TELEMETRY TO ACUTE REHAB STATUS TODAY PER DR OCTAVIA CERON AND NOTED
[2020-12-24] MEDS ORDERED: BISACODYL 10 MG SUPP.RECT RC PRN (13:00)
[2020-12-24] MEDS ORDERED: LACTULOSE 20 G/30 ML LIQUID UDC PO PRN (13:00)
--- NOTE | 2020-12-24 13:00 | NUR ---
PATIENT STATED HAS NOT HAD A BOWEL MOVEMENT FOR A FEW DAYS DID RECEIVE MIRALAX AND PRUNE JUICE WITH NO EFFECT DR OCTAVIA CERON NOTIFIED WITH NEW ORDERS AND NOTED.
--- NOTE | 2020-12-24 13:45 | NUR ---
MEDICATED WITH LACTULOSE ORDERED WILL OBSERVE.
--- NOTE | 2020-12-24 14:26 | NUR ---
PATIENT IS BEING PREPPED FOR DISCHARGE TO ARU
--- NOTE | 2020-12-24 14:52 | NUR ---
PATIENT DISCHARGED FROM THE TELEMETRY STATUS AND CONVERTED TO THE ACUTE REHAB PATIENT AWARE AND SIGNED HIS DISCHARGE PAPERS.
[2020-12-24] MEDS ORDERED: FINA5TAB11 PO (15:37)
[2020-12-24] MEDS ORDERED: ASPI-869 PO (15:37)
[2020-12-24] MEDS ORDERED: MELO-107 PO (15:37)
[2020-12-24] MEDS ORDERED: LISI-782 PO (15:37)
[2020-12-24] MEDS ORDERED: METF-440 PO (15:37)
[2020-12-24] MEDS ORDERED: MAGN400T26 PO (15:37)
[2020-12-24] MEDS ORDERED: DEXA4VIA47 IVP (15:37)
[2020-12-24] MEDS ORDERED: CARI350T PO (15:37)
[2020-12-24] MEDS ORDERED: ENOX40DI SQ (15:37)
[2020-12-24] MEDS ORDERED: ACET-2154 PO (15:37)
[2020-12-24] MEDS ORDERED: MORP2VIA IVF (15:37)
[2020-12-24] MEDS ORDERED: XERALTO PO (16:02)
[2020-12-25] MEDS ORDERED: METFORMIN HCL 500 MG TABLET PO SCH (08:00)
[2020-12-25] MEDS ORDERED: ERGOCALCIFEROL 50,000 UNIT CAPSULE PO SCH ×2 (09:00)
== END 2020-12-24 14:46 | DRG 542 ==
LOC: ER 20:03 → MEDSURG3 22:36 → TELE3 23:40
PROVIDERS: ADMIT Internal Medicine; ATTEND Nurse Practitioner Acute Care
DX: M80.88XA Other osteoporosis with current pathological fracture, vertebra(e), initial encounter for fracture (principal); E43 Unspecified severe protein-calorie malnutrition; I26.99 Other pulmonary embolism without acute cor pulmonale; I21.A1 Myocardial infarction type 2; I50.33 Acute on chronic diastolic (congestive) heart failure; D68.59 Other primary thrombophilia; M51.16 Intervertebral disc disorders with radiculopathy, lumbar region; M48.061 Spinal stenosis, lumbar region without neurogenic claudication; E11.9 Type 2 diabetes mellitus without complications; E83.42 Hypomagnesemia; I11.0 Hypertensive heart disease with heart failure; Z79.84 Long term (current) use of oral hypoglycemic drugs; Z79.899 Other long term (current) drug therapy; Z87.440 Personal history of urinary (tract) infections; R53.1 Weakness; Z20.822 Contact with and (suspected) exposure to COVID-19; N28.1 Cyst of kidney, acquired; M48.16 Ankylosing hyperostosis [Forestier], lumbar region; Z74.09 Other reduced mobility; I77.810 Thoracic aortic ectasia; I27.20 Pulmonary hypertension, unspecified; N40.0 Benign prostatic hyperplasia without lower urinary tract symptoms; Z68.25 Body mass index [BMI] 25.0-25.9, adult; M89.8X5 Other specified disorders of bone, thigh
CPT/HCPCS: 36415; 70030-TC; 71045; 71275; 72131; 82378; 83550; 83735; 84100; 84153; 85025; 85651; 87040; 93005; 93307; A4663; G0378; J1100; J1170; J1650; J1815; J3475; J7050; Q0162; Q9967

== ENCOUNTER 2020-12-24 14:50 | Inpatient (IN) | payer MEDICARE, OTHER ==
[~2020-12-24] VITALS: Ht 172.7 cm; Wt 77.1 kg
[~2020-12-24 14:50] MED LIST changes: +RIVA10TA PO
[2020-12-24] MEDS ORDERED: LACTULOSE 20 G/30 ML LIQUID UDC PO PRN (15:30)
[2020-12-24] MEDS ORDERED: BISACODYL 10 MG SUPP.RECT RC PRN (15:30)
--- NOTE | 2020-12-24 15:30 | NUR ---
PATIENT DISCHARGED FROM TELEMETRY AND CONVERTED TO ACUTE REHAB BUT STAYED IN SAME ROOM HE IS ALERT AND ORIENTED DENIES PAIN OR DISCOMFORTS AT THIS TIME.
[2020-12-24 15:32] VITALS: BP 128/76
[2020-12-24] MEDS ORDERED: MELO-107 PO (15:37)
[2020-12-24] MEDS ORDERED: DEXA4VIA47 IVP (15:37)
[2020-12-24] MEDS ORDERED: ASPI-869 PO (15:37)
[2020-12-24] MEDS ORDERED: MORP2VIA IVF (15:37)
[2020-12-24] MEDS ORDERED: LISI-782 PO (15:37)
[2020-12-24] MEDS ORDERED: FINA5TAB11 PO (15:37)
[2020-12-24] MEDS ORDERED: ENOX40DI SQ (15:37)
[2020-12-24] MEDS ORDERED: MAGN400T26 PO (15:37)
[2020-12-24] MEDS ORDERED: CARI350T PO (15:37)
[2020-12-24] MEDS ORDERED: ACET-2154 PO (15:37)
[2020-12-24] MEDS ORDERED: METF-440 PO (15:37)
[2020-12-24] MEDS ORDERED: XERALTO PO (16:02)
[2020-12-24] MEDS ORDERED: SENNOSIDES 1 TABLET PO PRN (16:15)
[2020-12-24] MEDS ORDERED: MIRALAX 17 GM POWD.PACK PO PRN (16:15)
[2020-12-24] MEDS ORDERED: DEXTROSE 50% 50 ML DISP.SYRIN IV PRN (16:15)
[2020-12-24] MEDS: BLOOD SUGAR DIAGNOSTIC 1 EACH STRIP VI SCH ×2 (16:38→21:02)
[2020-12-24] MEDS: INSULIN REGULAR, HUMAN 300 UNIT/3 ML VIAL SQ PRN (16:51)
[2020-12-24] MEDS ORDERED: NEUTRA PHOS PACKET PO ONE (17:15)
--- NOTE | 2020-12-24 17:54 | NUR ---
RESTING PHOS GIVEN ORDERED ADMISSION ORDERS RECEIVED ORDERED AND NOTED.
[2020-12-24] MEDS ORDERED: MORPHINE SULFATE 2 MG/1 ML DISP.SYRIN IV PRN (18:00)
[2020-12-24] MEDS ORDERED: OXYCODONE/APAP 5-325 MG TABLET PO PRN (19:45)
[2020-12-24 20:00] VITALS: BP 127/56
[2020-12-24] MEDS: TRAZODONE 50 MG TABLET PO SCH (20:25)
[2020-12-24] MEDS: TAMSULOSIN HCL 0.4 MG CAP.SR.24H PO SCH (20:25)
[2020-12-24] MEDS: RIVAROXABAN 10 MG TABLET PO SCH (20:32)
--- NOTE | 2020-12-25 00:17 | NUR ---
Received a 85 yr old male from [facility] admitted to Rehab with DX of L3-L5 fracture. AAOx4 On continous 1L of Oxygen via nasal cannula, pulse ox 96%. Needs attended. Fall precautions maintained. Siderails up for safety. Continent of bowel and bladder. Voiding freely. BM today. Denies any pain nor any discomfort. VSS Tolerated po meds well. Accucheck 122. No distress noted.
[2020-12-25 04:05] VITALS: BP 116/59
[2020-12-25] MEDS: PANTOPRAZOLE SODIUM 40 MG TABLET.DR PO SCH (06:15)
[2020-12-25] MEDS: BLOOD SUGAR DIAGNOSTIC 1 EACH STRIP VI SCH ×4 (06:34→21:00)
[2020-12-25 07:04] LABS: CREATININE 0.7 mg/dL (0.6-1.3); PHOSPHOROUS 2.3 mg/dL (2.5-4.9); POTASSIUM 4.4 mmol/L (3.5-5.1)
[2020-12-25 07:39] VITALS: BP 112/45
[2020-12-25] MEDS: FINASTERIDE 5 MG TABLET PO SCH (08:37)
[2020-12-25] MEDS: ASPIRIN 81 MG TAB.CHEW PO SCH (08:37)
[2020-12-25] MEDS: RIVAROXABAN 10 MG TABLET PO SCH ×2 (08:38→22:11)
[2020-12-25] MEDS: LISINOPRIL 5 MG TABLET PO SCH (08:43)
[2020-12-25] MEDS: ACETAMINOPHEN 325 MG TABLET PO PRN (09:08)
[2020-12-25] MEDS: CARISOPRODOL 350 MG TABLET PO PRN (09:08)
[2020-12-25] MEDS: INSULIN REGULAR, HUMAN 300 UNIT/3 ML VIAL SQ PRN (11:53)
[2020-12-25 15:12] VITALS: BP 94/51
[2020-12-25] MEDS ORDERED: NEUTRA PHOS PACKET PO ONE (16:30)
--- NOTE | 2020-12-25 18:51 | NUR ---
Received patient awake on bed with no respiratory distress noted. Alert and oriented x4, able to make needs known. Toileting assistance rendered with the use of urinal. Due medications given as ordered and blood sugar checks done. IV line on R forearm removed. No s/sx of redness, pain, and infection. Will continue to monitor.
[2020-12-25 22:05] VITALS: BP 104/53
[2020-12-25] MEDS: TRAZODONE 50 MG TABLET PO SCH (22:08)
[2020-12-25] MEDS: TAMSULOSIN HCL 0.4 MG CAP.SR.24H PO SCH (22:09)
[2020-12-26 04:10] VITALS: BP 103/49
[2020-12-26 06:30] LABS: CREATININE 0.7 mg/dL (0.6-1.3); PHOSPHOROUS 3.2 mg/dL (2.5-4.9); POTASSIUM 4.2 mmol/L (3.5-5.1)
[2020-12-26] MEDS: PANTOPRAZOLE SODIUM 40 MG TABLET.DR PO SCH (06:54)
[2020-12-26 07:40] VITALS: BP 111/55
[2020-12-26] MEDS: BLOOD SUGAR DIAGNOSTIC 1 EACH STRIP VI SCH ×4 (07:51→20:57)
[2020-12-26] MEDS: CARISOPRODOL 350 MG TABLET PO PRN (08:50)
[2020-12-26] MEDS: RIVAROXABAN 10 MG TABLET PO SCH ×2 (08:51→20:58)
[2020-12-26] MEDS: ASPIRIN 81 MG TAB.CHEW PO SCH (08:51)
[2020-12-26] MEDS: ACETAMINOPHEN 325 MG TABLET PO PRN (08:51)
[2020-12-26] MEDS: LISINOPRIL 5 MG TABLET PO SCH (08:51)
[2020-12-26] MEDS: FINASTERIDE 5 MG TABLET PO SCH (08:52)
--- NOTE | 2020-12-26 08:52 | NUR ---
RECEIVED PT ALERT AND ORIENTED X4 GIVEN MEDICATION ORDERED DENIES PAIN PT AM BLOOD SUGAR 124 NO COVERAGE REQUIRED AND NO SIGNS OF DIABETIC REACTION NOTED. WILL CONTINUE TO MONITOR FOR SAFETY HOURLY.
[2020-12-26] MEDS: INSULIN REGULAR, HUMAN 300 UNIT/3 ML VIAL SQ PRN ×3 (11:55→21:03)
[2020-12-26] MEDS ORDERED: CYANOCOBALAMIN 1000 MCG/ML VIAL IM SCH ×2 (13:15→15:00)
[2020-12-26] MEDS ORDERED: NALOXONE HCL 0.4 MG/ML AMPUL IV PRN (14:45)
--- NOTE | 2020-12-26 14:56 | NUR ---
Informed Dr. Beckwith regarding order for neuro consult d/t bilateral leg weakness and pain.
[2020-12-26] MEDS: PREGABALIN 25 MG CAPSULE PO SCH ×2 (15:11→21:57)
[2020-12-26] MEDS: OXYCODONE HCL 10 MG TAB.SR.12H PO SCH ×2 (15:11→20:59)
[2020-12-26 16:03] VITALS: BP 112/63
--- NOTE | 2020-12-26 17:44 | NUR ---
Received patient awake on bed with no respiratory distress noted. Alert and oriented x4, able to make needs known. Toileting assistance rendered with the use of urinal. Due medications given as ordered and blood sugar checks done. Heplock on R hand still intact, no s/sx of infection. Will continue to monitor.
--- NOTE | 2020-12-26 19:39 | NUR ---
TEXTED DR. SEAMAN FOR MRI APPROVAL.
[2020-12-26 20:10] VITALS: BP 102/55
[2020-12-26] MEDS: TRAZODONE 50 MG TABLET PO SCH (20:57)
[2020-12-26] MEDS: TAMSULOSIN HCL 0.4 MG CAP.SR.24H PO SCH (20:58)
[2020-12-27 04:10] VITALS: BP 106/38
[2020-12-27] MEDS: PANTOPRAZOLE SODIUM 40 MG TABLET.DR PO SCH (06:14)
[2020-12-27] MEDS: PREGABALIN 25 MG CAPSULE PO SCH ×3 (06:14→22:16)
[2020-12-27] MEDS: BLOOD SUGAR DIAGNOSTIC 1 EACH STRIP VI SCH ×4 (06:18→20:51)
[2020-12-27 07:30] VITALS: BP 112/52
[2020-12-27] MEDS: ASPIRIN 81 MG TAB.CHEW PO SCH (08:50)
[2020-12-27] MEDS: FINASTERIDE 5 MG TABLET PO SCH (08:51)
[2020-12-27] MEDS: LISINOPRIL 5 MG TABLET PO SCH (08:52)
[2020-12-27] MEDS: OXYCODONE HCL 10 MG TAB.SR.12H PO SCH ×2 (08:54→20:42)
[2020-12-27] MEDS: RIVAROXABAN 15 MG TABLET PO SCH ×2 (08:57→20:42)
[2020-12-27] MEDS: INSULIN REGULAR, HUMAN 300 UNIT/3 ML VIAL SQ PRN ×2 (11:51→16:50)
--- NOTE | 2020-12-27 14:55 | NUR ---
INDIVIDUALIZED PLAN OF CARE
[2020-12-27 15:07] VITALS: BP 97/47
--- NOTE | 2020-12-27 19:30 | NUR ---
Received pt in bed, A&Ox4, verbally responsive, able to make needs known. Denies any pain or discomfort, no s/s of respiratory distress. Repositioned comfortably in bed, safety measures initiated, call light within reach.
[2020-12-27 20:10] VITALS: BP 102/53
[2020-12-27] MEDS: TRAZODONE 50 MG TABLET PO SCH (20:39)
[2020-12-27] MEDS: TAMSULOSIN HCL 0.4 MG CAP.SR.24H PO SCH (20:39)
[2020-12-28 04:10] VITALS: BP 101/45
[2020-12-28] MEDS: PREGABALIN 25 MG CAPSULE PO SCH ×3 (06:18→21:42)
[2020-12-28] MEDS: PANTOPRAZOLE SODIUM 40 MG TABLET.DR PO SCH (06:18)
[2020-12-28] MEDS: BLOOD SUGAR DIAGNOSTIC 1 EACH STRIP VI SCH ×4 (06:30→20:38)
--- NOTE | 2020-12-28 07:00 | NUR ---
No signs of acute distress, no significant change in condition noted through the night. Due medications administered and tolerated well. IV access intact and patent. Latest BS is 123. Safety measures maintained at all times. All needs attended to and met.
[2020-12-28 07:38] VITALS: BP 95/41
[2020-12-28 08:08] LABS: CREATININE 0.9 mg/dL (0.6-1.3); MAGNESIUM 1.7 mg/dL (1.8-2.4); PHOSPHOROUS 2.8 mg/dL (2.5-4.9); POTASSIUM 4.6 mmol/L (3.5-5.1)
[2020-12-28] MEDS: OXYCODONE HCL 10 MG TAB.SR.12H PO SCH ×2 (08:10→20:38)
[2020-12-28] MEDS: ASPIRIN 81 MG TAB.CHEW PO SCH (08:10)
[2020-12-28] MEDS: RIVAROXABAN 15 MG TABLET PO SCH ×2 (08:11→20:39)
[2020-12-28] MEDS: LISINOPRIL 5 MG TABLET PO SCH (08:11)
[2020-12-28] MEDS: FINASTERIDE 5 MG TABLET PO SCH (08:11)
[2020-12-28 08:12] LABS: HEMATOCRIT 33.3 % (36.7-47.1); MEAN CORPUSCULAR HEMOGLOBIN 26.7 uug (23.8-33.4); MEAN CORPUSCULAR VOLUME 85.8 fL (73.0-96.2); PLATELET COUNT (AUTO) 419 K/uL (152-348)
[2020-12-28] MEDS ORDERED: MAGNESIUM OXIDE 400 MG TABLET PO ONE (09:15)
[2020-12-28] MEDS: INSULIN REGULAR, HUMAN 300 UNIT/3 ML VIAL SQ PRN ×2 (11:36→20:41)
[2020-12-28 15:46] VITALS: BP 109/59
--- NOTE | 2020-12-28 19:20 | NUR ---
Received pt in bed, awake and verbally responsive, denies any pain or discomfort. No s/s of respiratory distress. Discussed plan of care with the pt. Pt verbalized understanding. Safety measures initiated, call light within reach.
[2020-12-28 20:06] VITALS: BP 98/48
[2020-12-28] MEDS: TRAZODONE 50 MG TABLET PO SCH (20:37)
[2020-12-28] MEDS: TAMSULOSIN HCL 0.4 MG CAP.SR.24H PO SCH (20:38)
[2020-12-28] MEDS ORDERED: BENZONATATE 100 MG CAPSULE PO PRN (22:00)
--- NOTE | 2020-12-28 22:00 | NUR ---
Notified Dr. Parker that pt has dry cough. Received new medication order. Medication administered and tolerated well by the pt.
[2020-12-29 04:06] VITALS: BP 110/49
[2020-12-29] MEDS: PANTOPRAZOLE SODIUM 40 MG TABLET.DR PO SCH (06:24)
[2020-12-29] MEDS: PREGABALIN 25 MG CAPSULE PO SCH ×2 (06:24→13:01)
[2020-12-29] MEDS: BLOOD SUGAR DIAGNOSTIC 1 EACH STRIP VI SCH ×4 (06:31→21:20)
--- NOTE | 2020-12-29 06:56 | NUR ---
No significant change in condition noted through the night. Administered due medications and tolerated well. Pt refused medication for constipation due to scheduled MRI and PT today saying "I don't want it to be messy". Safety measures maintained at all times. All needs attended to and met. Endorsed to day shift nurse.
[2020-12-29 08:00] VITALS: BP 106/62
[2020-12-29] MEDS: ASPIRIN 81 MG TAB.CHEW PO SCH (08:02)
[2020-12-29] MEDS: OXYCODONE HCL 10 MG TAB.SR.12H PO SCH ×2 (08:03→20:19)
[2020-12-29] MEDS: FINASTERIDE 5 MG TABLET PO SCH (08:03)
[2020-12-29] MEDS: RIVAROXABAN 15 MG TABLET PO SCH ×2 (08:05→20:19)
[2020-12-29] MEDS: LISINOPRIL 5 MG TABLET PO SCH (08:06)
[2020-12-29] MEDS: INSULIN REGULAR, HUMAN 300 UNIT/3 ML VIAL SQ PRN (11:46)
[2020-12-29 16:00] VITALS: BP 104/61
--- NOTE | 2020-12-29 19:42 | NUR ---
SPOKE WITH DR. CAMERON TO CLARIFY ADMINISTRATION OF XARELTO. OK TO GIVE XARELTO TONIGHT AND HOLD SOREN DOSE. COREMAKER MACHINE NOTIFIED.
[2020-12-29 20:06] VITALS: BP 118/58
[2020-12-29] MEDS: TAMSULOSIN HCL 0.4 MG CAP.SR.24H PO SCH (20:18)
[2020-12-29] MEDS: TRAZODONE 50 MG TABLET PO SCH (20:18)
[2020-12-29] MEDS: ACETAMINOPHEN 325 MG TABLET PO PRN (20:18)
[2021-01-15] MEDS ORDERED: RIVAROXABAN 10 MG TABLET PO SCH (17:00)
== END 2020-12-29 21:34 | disposition short-term general hospital (02) | DRG 559 ==
PROVIDERS: ADMIT Physical Medicine & Rehabilitation Pain Medicine; ATTEND Physical Medicine & Rehabilitation Pain Medicine
DX: M80.08XD Age-related osteoporosis with current pathological fracture, vertebra(e), subsequent encounter for fracture with routine healing (principal); I26.99 Other pulmonary embolism without acute cor pulmonale; I21.A1 Myocardial infarction type 2; I50.33 Acute on chronic diastolic (congestive) heart failure; D68.59 Other primary thrombophilia; I27.20 Pulmonary hypertension, unspecified; M51.26 Other intervertebral disc displacement, lumbar region; N40.0 Benign prostatic hyperplasia without lower urinary tract symptoms; M48.061 Spinal stenosis, lumbar region without neurogenic claudication; E11.9 Type 2 diabetes mellitus without complications; R26.9 Unspecified abnormalities of gait and mobility; I77.810 Thoracic aortic ectasia; Z87.440 Personal history of urinary (tract) infections; R53.1 Weakness; I11.0 Hypertensive heart disease with heart failure; Z91.81 History of falling; I25.10 Atherosclerotic heart disease of native coronary artery without angina pectoris; M19.90 Unspecified osteoarthritis, unspecified site; M41.9 Scoliosis, unspecified; M54.10 Radiculopathy, site unspecified; Z79.01 Long term (current) use of anticoagulants; G89.29 Other chronic pain
CPT/HCPCS: 36415; 72158; 83735; 84100; 85025; J1815; J3420

== ENCOUNTER 2020-12-29 21:14 | Inpatient (IN) | payer MEDICARE, OTHER ==
[~2020-12-29] VITALS: Ht 172.7 cm; Wt 77.1 kg
[2020-12-29 21:00] VITALS: BP 118/58
[~2020-12-29 21:14] MED LIST changes: +ACET-2154 PO; +CARI350T PO; +DEXA4VIA47 IVP; -ERGO500040 PO; +LISI-782 PO; -LISI10TA29 PO; +MAGN400T26 PO; +MORP2VIA IVF; +XERALTO PO
--- NOTE | 2020-12-29 21:30 | NUR ---
PATIENT WAS DISCHARGED FROM ARU AND RE-ADMITTED TO MED SURG FOR PLACEMENT OF IVC FILTER IN AM. PATIENT IS A/O X4. VERY PLEASANT WHEN APPROACHED. NO C/O PAIN AT THIS TIME. PATIENT STATED, PAIN IS MOSTLY PRESENT DURING ADL'S OR POSITION CHANGES. IV HEPLOCK NOTED TO RIGHT HAND, #20 GAUGE, INTACT AND PATENT. VS WNL. NO RESP. DISTRESS NOTED. CALL LIGHT IN REACH. ALL NEEDS ATTENDED. WILL CONTINUE TO MONITOR OR ASSESS.
[2020-12-29] MEDS ORDERED: DEXTROSE 50% 50 ML DISP.SYRIN IV PRN (22:00)
[2020-12-29] MEDS: BLOOD SUGAR DIAGNOSTIC 1 EACH STRIP VI SCH (22:00)
[2020-12-29] MEDS ORDERED: INSULIN REGULAR, HUMAN 300 UNIT/3 ML VIAL SQ PRN (22:00)
--- NOTE | 2020-12-30 | NUR ---
PATIENT NPO FOR SURGERY IN AM. VERBALIZED UNDERSTANDING. CONSENT SIGNED. CALL LIGHT IN REACH, BED ALARM ON. ALL NEEDS ATTENDED. WILL CONTINUE TO MONITOR AND ASSESS.
[2020-12-30 03:03] LABS: HEMATOCRIT 31.1 % (36.7-47.1); MEAN CORPUSCULAR HEMOGLOBIN 27.1 uug (23.8-33.4); MEAN CORPUSCULAR VOLUME 84.9 fL (73.0-96.2); PLATELET COUNT (AUTO) 436 K/uL (152-348)
[2020-12-30 03:15] LABS: CREATININE 0.8 mg/dL (0.6-1.3); MAGNESIUM 1.3 mg/dL (1.8-2.4); PHOSPHOROUS 2.5 mg/dL (2.5-4.9); POTASSIUM 3.8 mmol/L (3.5-5.1)
[2020-12-30 04:06] VITALS: BP 101/50
--- NOTE | 2020-12-30 05:42 | NUR ---
PATIENT RESTING IN BED. WAITING FOR SURGERY TO PICK HIM UP. VSS. SLEPT WELL. KEPT NPO THROUGHOUT THE NIGHT. BED ALARM ON. CALL LIGHT IN REACH. ALL NEEDS ATTENDED. WILL CONTINUE TO MONITOR AND ASSESS.
[2020-12-30] MEDS: BLOOD SUGAR DIAGNOSTIC 1 EACH STRIP VI SCH (06:18)
[2020-12-30] MEDS ORDERED: HEPARIN/NS 500 ML ONE (06:35)
[2020-12-30] MEDS ORDERED: IOPAMIDOL 15 ML VIAL IT ONE ×2 (06:35→07:45)
[2020-12-30] MEDS ORDERED: LIDOCAINE HCL 1% 20 ML VIAL ONE (06:35)
--- NOTE | 2020-12-30 06:38 | NUR ---
REPORT GIVEN TO SURGERY RN. PATIENT PICKED UP FOR SURGERY. PATIENT LEFT FLOOR IN STABLE CONDITION. WILL CONTINUE TO MONITOR AND ASSESS.
[2020-12-30] MEDS ORDERED: FENTANYL CITRATE 100 MCG/2 ML AMPUL ONE (07:05)
[2020-12-30] MEDS ORDERED: PROPOFOL 200 MG/20 ML BOTTLE IV ONE (07:50)
[2020-12-30] MEDS: MAGNESIUM SULFATE/D5W 100 ML IV SCH ×4 (09:48→12:43)
[2020-12-30] MEDS ORDERED: SENNOSIDES 1 TABLET PO PRN (10:30)
[2020-12-30] MEDS ORDERED: ACETAMINOPHEN 325 MG TABLET PO PRN (10:30)
[2020-12-30] MEDS ORDERED: MIRALAX 17 GM POWD.PACK PO PRN (10:30)
[2020-12-30] MEDS ORDERED: RIVAROXABAN 15 MG TABLET PO SCH (11:00)
[2020-12-30] MEDS: BENZONATATE 100 MG CAPSULE PO PRN (11:49)
[2020-12-30 12:04] VITALS: BP 108/46
[2020-12-30] MEDS: CARISOPRODOL 350 MG TABLET PO SCH ×2 (12:28→16:36)
[2020-12-30 16:14] VITALS: BP 114/66
[2020-12-30] MEDS: METFORMIN HCL 500 MG TABLET PO SCH (17:11)
[2020-12-30 20:00] VITALS: BP 109/55
[2020-12-30] MEDS: TRAZODONE 50 MG TABLET PO SCH (20:38)
[2020-12-30] MEDS: MAGNESIUM OXIDE 400 MG TABLET PO SCH (20:38)
[2020-12-30] MEDS: TAMSULOSIN HCL 0.4 MG CAP.SR.24H PO SCH (20:38)
[2020-12-31 04:07] VITALS: BP 96/50
[2020-12-31 06:39] LABS: CREATININE 0.7 mg/dL (0.6-1.3); MAGNESIUM 2.1 mg/dL (1.8-2.4); POTASSIUM 4.1 mmol/L (3.5-5.1)
[2020-12-31] MEDS ORDERED: PANTOPRAZOLE SODIUM 40 MG TABLET.DR PO SCH (07:00)
--- NOTE | 2020-12-31 08:00 | NUR ---
awake alert and oriented x3 no ss of pain or sob saturating 95% on 2l NC. Will continue to monitor
[2020-12-31] MEDS: METFORMIN HCL 500 MG TABLET PO SCH ×2 (08:35→17:11)
[2020-12-31] MEDS: CARISOPRODOL 350 MG TABLET PO SCH ×3 (08:35→17:11)
[2020-12-31] MEDS ORDERED: FINASTERIDE 5 MG TABLET PO SCH (09:00)
[2020-12-31] MEDS ORDERED: ASPIRIN EC 81 MG TABLET.DR PO SCH (09:00)
[2020-12-31] MEDS: BENZONATATE 100 MG CAPSULE PO PRN (09:09)
[2020-12-31 11:04] LABS: BILIRUBIN,DIRECT 0.1 mg/dL (0.0-0.2); BILIRUBIN,TOTAL 0.3 mg/dL (0.2-1.0); TOTAL PROTEIN, SERUM 5.6 g/dL (6.4-8.2)
[2020-12-31 11:55] VITALS: BP 105/55
--- NOTE | 2020-12-31 12:00 | NUR ---
no acute change from am assessment. medicated x1 with Tessalon Perles with good effect. no further coughing after
--- NOTE | 2020-12-31 15:32 | NUR ---
RESTING COMFORTABLY IN BED NO SS OF ACUTE PAIN OR SOB. CONTINUE PLAN OF CARE
[2020-12-31 16:05] VITALS: BP 122/66
--- NOTE | 2020-12-31 18:30 | NUR ---
REPORT GIVEN TO KATHE AT [facility] BED [phone]
--- NOTE | 2020-12-31 20:00 | NUR ---
Patient D/c to [facility] per ambulance with family. V/S stable 97.9f - 67 - 18 - 97% - 110/52, AOx3, no sob, kept O2 2lpm via nc.
[2020-12-31 20:06] VITALS: BP 110/52
[2020-12-31] MEDS: MAGNESIUM OXIDE 400 MG TABLET PO SCH (21:00)
[2020-12-31] MEDS: TAMSULOSIN HCL 0.4 MG CAP.SR.24H PO SCH (21:00)
[2020-12-31] MEDS: TRAZODONE 50 MG TABLET PO SCH (21:00)
== END 2020-12-31 21:26 | disposition short-term general hospital (02) | DRG 175 ==
LOC: MEDSURG3 21:14
PROVIDERS: ADMIT Internal Medicine; ATTEND Internal Medicine
PROC: 06H03DZ Insertion of Intraluminal Device into Inferior Vena Cava, Percutaneous Approach (ICD-10-PCS; principal; 2020-12-30)
DX: I26.99 Other pulmonary embolism without acute cor pulmonale (principal); E43 Unspecified severe protein-calorie malnutrition; M80.08XA Age-related osteoporosis with current pathological fracture, vertebra(e), initial encounter for fracture; D68.59 Other primary thrombophilia; I50.32 Chronic diastolic (congestive) heart failure; R00.1 Bradycardia, unspecified; T44.7X5A Adverse effect of beta-adrenoreceptor antagonists, initial encounter; Y92.239 Unspecified place in hospital as the place of occurrence of the external cause; E11.9 Type 2 diabetes mellitus without complications; E83.42 Hypomagnesemia; Z87.440 Personal history of urinary (tract) infections; Z79.51 Long term (current) use of inhaled steroids; N40.0 Benign prostatic hyperplasia without lower urinary tract symptoms; R53.1 Weakness; I11.0 Hypertensive heart disease with heart failure; N28.1 Cyst of kidney, acquired; M48.16 Ankylosing hyperostosis [Forestier], lumbar region; Z74.09 Other reduced mobility; M89.8X8 Other specified disorders of bone, other site; Z79.01 Long term (current) use of anticoagulants; I77.810 Thoracic aortic ectasia; Z79.84 Long term (current) use of oral hypoglycemic drugs; M48.061 Spinal stenosis, lumbar region without neurogenic claudication; M51.16 Intervertebral disc disorders with radiculopathy, lumbar region; Z68.25 Body mass index [BMI] 25.0-25.9, adult
CPT/HCPCS: 36415; 74018; 83735; 84100; 85025; 85730; 93005; G0378; J1644; J1815; J3010; J3475; J3490; Q9967